=== PATIENT | male | born 2000 | race American Indian/Alaskan Native ===

== ENCOUNTER 2021-10-05 19:24 | Emergency (ER) | payer OTHER ==
[2021-10-05 20:35] VITALS: BP 146/89
--- NOTE | 2021-10-05 21:18 | XRay Report ---
RIGHT THUMB 3 VIEW(S) INDICATION / CLINICAL INFORMATION: INJURY COMPARISON: None available. FINDINGS: BONES / JOINT(S): No acute displaced fracture. Possible subluxation at the thumb CMC joint. Recommend clinical correlation. There is a small radiopaque body in the soft tissues of the hand best seen on the oblique images which is nonspecific but may represent a foreign body. SOFT TISSUES: No significant abnormality. ADDITIONAL FINDINGS: None. Signer Name: Tito Bridges MD Signed: 10/05/2021 9:14 PM Workstation Name: [id number]
--- NOTE | 2021-10-05 21:19 | XRay Report ---
LEFT FOREARM 2 VIEW(S) INDICATION / CLINICAL INFORMATION: INJURY COMPARISON: None available. FINDINGS: BONES / JOINT(S): No acute fracture or subluxation. No significant arthritis. SOFT TISSUES: No significant abnormality. ADDITIONAL FINDINGS: None. Signer Name: Tito Bridges MD Signed: 10/05/2021 9:15 PM Workstation Name: [id number]
== END 2021-10-06 07:00 | disposition left against medical advice (07) ==
LOC: ED 19:24
DX: S69.92XA Unspecified injury of left wrist, hand and finger(s), initial encounter (principal); Z53.21 Procedure and treatment not carried out due to patient leaving prior to being seen by health care provider; X58.XXXA Exposure to other specified factors, initial encounter; Y93.89 Activity, other specified; Y92.89 Other specified places as the place of occurrence of the external cause; Y99.8 Other external cause status